=== PATIENT | female | born 1980 | race Caucasian/White ===

== ENCOUNTER 2018-06-22 20:21 | Emergency (ER) | payer BC, OTHER ==
[~2018-06-22] VITALS: Ht 165.1 cm; Wt 104.5 kg
[~2018-06-22 20:21] MED LIST: ALPR0.255 PO; AMLO5TAB66 PO; ATEN25TA PO; FLUO-191 PO; HYDR25TA PO
[2018-06-22] MEDS: KETOROLAC TROMETHAMINE 60 MG/2 ML VIAL IM ONE (21:48)
[2018-06-22 22:19] LABS: INFLUENZA TYPE A NEGATIVE FOR TYPE A (NEGATIVE); INFLUENZA TYPE B NEGATIVE FOR TYPE B (NEGATIVE)
[2018-06-22 22:42] VITALS: BP 133/91
[2018-06-22] MEDS: ALBUTEROL SULFATE HFA 90 MCG/PUFF 8 GM INHALER IH ONE (23:29)
== END 2018-06-22 23:43 | disposition home or self-care (01) ==
LOC: EMS 20:22
DX: J40 Bronchitis, not specified as acute or chronic (principal); M79.10 Myalgia, unspecified site; I10 Essential (primary) hypertension; F41.9 Anxiety disorder, unspecified; Z90.49 Acquired absence of other specified parts of digestive tract
CPT/HCPCS: 71046; 81002; 87804; 94640; 96372; 99284; J1885; J3535